=== PATIENT | male | born 1995 | race Caucasian/White ===

== ENCOUNTER 2017-08-25 05:22 | Emergency (ER) | payer OTHER ==
[~2017-08-25] VITALS: Ht 170.2 cm; Wt 67.0 kg
[~2017-08-25 05:22] MED LIST: CEPH500C3 PO; TRAM50TA PO
[2017-08-25 05:27] VITALS: BP 132/59; PULSE 94; RESP 20; TEMP 99.4; O2SAT 97
[2017-08-25] MEDS ORDERED: IBUPROFEN 600 MG TAB PO ONE (06:15)
--- NOTE | 2017-08-25 06:24 | PD ---
HPI Chief Complaint: GI Complaint Time Seen by Provider: 05:48 Travel History International Travel<30 days: No Contact w/Intl Traveler<30days: No Traveled to known affect area: No History of Present Illness HPI Patient is a 21-year-old male who had a baby with his 2 days ago it [facility] since then he has been having fevers chills shakes sleeping under blankets unable to sleep sweating profusely. He has mild nausea he's vomited a few times but denies abdominal pain area he has taken nothing for this been lying in a blanket sweating but no other medication taken. PFSH Past Medical History Medical History: Denies Significant Hx Diminished Hearing: No Respiratory: Yes (CHRONIC EAR PROBLEMS ALLERGIC RHINNITIS) Immunizations Current: Yes Tetanus Vaccination: < 5 Years Influenza Vaccination: No Past Surgical History Surgical History: No Previous Surgery Social History Alcohol Use: No Tobacco Use: No Substance Use: No Allergies-Medications (Allergen,Severity, Reaction): Coded Allergies: No Known Allergies (Verified , 02/10/16) Reported Meds & Prescriptions Reported Meds & Active Scripts Active Tramadol Hcl (Tramadol HCl) 50 Mg Tab 50 Mg PO Q6HR PRN Keflex (Cephalexin Monohydrate) 500 Mg Cap 500 Mg PO Q8 Review of Systems Except as stated in HPI: all other systems reviewed are Neg General / Constitutional: Positive: Fever, Chills Gastrointestinal: Positive: Nausea, Vomiting Physical Exam Narrative GENERAL: Nontoxic-appearing has mild eczema rash on his face forehead nose Bridge SKIN: Warm and dry. Some eczema on his forehead nose [place] HEAD: Atraumatic. Normocephalic. EYES: Pupils equal and round. No scleral icterus. No injection or drainage. ENT: No nasal bleeding or discharge. Mucous membranes pink and moist. NECK: Trachea midline. No JVD. CARDIOVASCULAR: Regular rate and rhythm. RESPIRATORY: No accessory muscle use. Clear to auscultation. Breath sounds equal bilaterally. GASTROINTESTINAL: Abdomen soft, non-tender, nondistended. Hepatic and splenic margins not palpable. MUSCULOSKELETAL: Extremities without clubbing, cyanosis, or edema. No obvious deformities. NEUROLOGICAL: Awake and alert. No obvious cranial nerve deficits. Motor grossly within normal limits. Five out of 5 muscle strength in the arms and legs. Normal speech. PSYCHIATRIC: Appropriate mood and affect; insight and judgment normal. Data Data Last Documented VS Vital Signs Date Time Temp Pulse Resp B/P (MAP) Pulse Ox O2 Delivery O2 Flow Rate FiO2 08/25/17 05:27 99.4 94 20 132/59 (83) 97 Orders Orders Ibuprofen (Motrin) (08/25/17 06:15) Guaifen-Cod 200-20 Mg/10ml Liq (Robituss (08/25/17 06:30) Influenzae A/B Antigen (08/25/17 06:19) MDM Medical Decision Making Medical Screen Exam Complete: Yes Emergency Medical Condition: Yes Differential Diagnosis viral illness vs strep or flu or anxiety stress reaction Narrative Course flu negative and symptomatic treatment Diagnosis Primary Impression: Viral illness Patient Instructions: General Instructions, Viral Syndrome (ED) Scripts Pseudoephedrine (Pseudoephedrine) 60 Mg Tab 60 MG PO Q6H Y for NASAL CONGESTION, #20 TAB 0 Refills Prov: Nathanael Godoy MD 08/25/17 Ibuprofen (Ibuprofen) 600 Mg Tab 600 MG PO Q6H Y for Pain/Inflammation, #20 TAB 0 Refills Prov: Nathanael Godoy MD 08/25/17 Guaifenesin-Codeine Liq (Guaifenesin AC Liq) 100-10 Mg/5 Ml Syrp 10 ML PO Q6H Y for COUGH, #1 BOTTLE 0 Refills Prov: Nathanael Godoy MD 08/25/17 Disposition: 01 DISCHARGE HOME Condition: Good Nathanael Godoy MD Aug 25, 2017 06:24
[2017-08-25] MEDS ORDERED: guaiFENesin/CODEINE SYRUP 200 MG/20 MG/10 ML CUP PO ONE (06:30)
[2017-08-25] MEDS ORDERED: SUDO60TA2 PO (07:06)
[2017-08-25] MEDS ORDERED: GUAISYP4 PO (07:06)
[2017-08-25] MEDS ORDERED: IBUP-232 PO (07:06)
== END 2017-08-25 07:30 | disposition home or self-care (01) ==
LOC: PHED 05:22
DX: B34.9 Viral infection, unspecified (principal)
CPT/HCPCS: 87804; 99283

== ENCOUNTER 2017-11-04 14:19 | Emergency (ER) | payer OTHER ==
[~2017-11-04] VITALS: Ht 170.2 cm; Wt 70.0 kg
[~2017-11-04 14:19] MED LIST changes: +GUAISYP4 PO; +IBUP-232 PO; +SUDO60TA2 PO
[2017-11-04 14:28] VITALS: BP 138/79; PULSE 78; RESP 16; TEMP 98.5; O2SAT 98
[2017-11-04] MEDS ORDERED: VIST25CA PO (15:09)
[2017-11-04] MEDS ORDERED: PRED20 PO (15:09)
[2017-11-04] MEDS ORDERED: TRIAM.1%T TOPICAL (15:09)
[2017-11-04] MEDS ORDERED: DEXAMETHASONE SOD PHOS 20 MG/5 ML VIAL IM ONE (15:15)
--- NOTE | 2017-11-04 15:15 | PD ---
HPI Chief Complaint: Skin Problem Time Seen by Provider: 14:40 Travel History International Travel<30 days: No Contact w/Intl Traveler<30days: No Traveled to known affect area: No History of Present Illness HPI 22-year-old male that presents to the ED for evaluation of possible eczema. Per patient has a history of eczema throughout most of his life and is having a bad flareup for the past 2 days. Per patient his been applying hydrocortisone cream with minimal relief. Per patient he is about to run out. He denies any urinary or bowel movement issues. Per patient is very itchy and painful whenever the skin breakdown. She denies any triggers. He denies any asthma. Per patient she's had to have oral steroids as well as creams in the past because of the bad flareups. Per patient his discomfort is 2 out of 10 and only on cuts. Denies any other medical issues. No fevers chills or sweats. PFSH Past Medical History Diminished Hearing: No Respiratory: Yes Immunizations Current: Yes Tetanus Vaccination: Unknown Social History Alcohol Use: No Tobacco Use: No Substance Use: No Allergies-Medications (Allergen,Severity, Reaction): Coded Allergies: No Known Allergies (Verified Adverse Reaction, Unknown, 11/04/17) Reported Meds & Prescriptions Reported Meds & Active Scripts Active Vistaril (Hydroxyzine Pamoate) 25 Mg Cap 25 Mg PO TID PRN Triamcinolone Topical (Triamcinolone Acetonide) 0.1 % Oint 1 Applic TOPICAL BID 30 Days Prednisone 20 Mg Tab 20 Mg PO BID 7 Days Review of Systems Except as stated in HPI: all other systems reviewed are Neg Physical Exam Narrative GENERAL: SKIN: Warm and dry. Patient has a pruritic erythematous and raised rash on the joint as well as on the abdomen and back. Legs noted as well. Some scars noted from scratching. HEAD: Atraumatic. Normocephalic. EYES: Pupils equal and round. No scleral icterus. No injection or drainage. ENT: No nasal bleeding or discharge. Mucous membranes pink and moist. NECK: Trachea midline. No JVD. CARDIOVASCULAR: Regular rate and rhythm. RESPIRATORY: No accessory muscle use. Clear to auscultation. Breath sounds equal bilaterally. GASTROINTESTINAL: Abdomen soft, non-tender, nondistended. Hepatic and splenic margins not palpable. MUSCULOSKELETAL: Extremities without clubbing, cyanosis, or edema. No obvious deformities. NEUROLOGICAL: Awake and alert. No obvious cranial nerve deficits. Motor grossly within normal limits. Five out of 5 muscle strength in the arms and legs. Normal speech. PSYCHIATRIC: Appropriate mood and affect; insight and judgment normal. Data Data Last Documented VS Vital Signs Date Time Temp Pulse Resp B/P (MAP) Pulse Ox O2 Delivery O2 Flow Rate FiO2 11/04/17 14:28 98.5 78 16 138/79 (98) 98 Orders Orders Dexamethasone Inj (Decadron Inj) (11/04/17 15:15) Ed Discharge Order (11/04/17 15:10) [facility] Medical Decision Making Medical Screen Exam Complete: Yes Emergency Medical Condition: Yes Medical Record Reviewed: Yes Differential Diagnosis Eczema versus allergic reaction versus atopic dermatitis Narrative Course 22-year-old male that presents to the ED for evaluation of itchy rash. Patient was properly examined and was found to have signs and symptoms very consistent appears to be eczema exacerbation. Unclear trigger. Likely transient climate. We'll start with prednisone, triamcinalone, Vistaril. Patient was told to follow with route specialist. See ED worsening symptoms. Follow with PCP. Diagnosis Primary Impression: Eczema Qualified Codes: L30.9 - Dermatitis, unspecified Patient Instructions: General Instructions Additional Instructions: Follow-up with route specialist. Take medication as prescribed. You can get the cream [id number] without a prescription. Avoid any smelly shampoos and case aide. Use allergen free soaps and case aide to help prevent this. Also make sure that you detergent for your clothes is allergen free as well as this could also be worsening your symptoms. See ED if worst. Med/Other Pt SpecificInfo: Prescription(s) given Scripts Hydroxyzine Pamoate (Vistaril) 25 Mg Cap 25 MG PO TID Y for ITCHING, #20 CAP 0 Refills Prov: Jelani Carlisle MD 11/04/17 Triamcinolone Topical (Triamcinolone Topical) 0.1 % Oint 1 APPLIC TOPICAL BID for Inflammation for 30 Days, GM 2 Refills Prov: Jelani Carlisle MD 11/04/17 Prednisone (Prednisone) 20 Mg Tab 20 MG PO BID for 7 Days, #14 TAB 0 Refills Prov: Jelani Carlisle MD 11/04/17 Disposition: 01 DISCHARGE HOME Condition: Stable Wesley Oconnor Nov 04, 2017 15:15
== END 2017-11-04 15:29 | disposition home or self-care (01) ==
LOC: PHEFT 14:19
DX: L30.9 Dermatitis, unspecified (principal)
CPT/HCPCS: 96372; 99283; J1100